=== PATIENT | male | born 1980 | race Caucasian/White ===

== ENCOUNTER 2016-11-05 20:31 | Inpatient (IN) | payer OTHER ==
[~2016-11-05] VITALS: Ht 172.7 cm; Wt 88.1 kg
[~2016-11-05 20:31] MED LIST: BENADRYL50 MG PO; IBUPROFEN200 M1 PO; MELATONIN5 M2 PO; NEXIUM40 MG PO; Xanax PO
[2016-11-05 20:54] LABS: POINT-OF-CARE METER ID UU13113778
[2016-11-05 21:21] LABS: CARBON DIOXIDE (BICARBONATE) 21.4 MEQ/L (20-31); HEMATOCRIT 37.8 % (38.0-50.0); MCH 37.2 PG (29.0-34.0); MCV 100.5 FL (86-99); MEAN PLAT.VOLUME 9.2 uM^3 (9.0-12.4); PLATELET COUNT 118 K/uL (156-360); RBC DIS.WIDTH-CV 11.5 % (11.8-14.6); RBC DIS.WIDTH-SD 41.8 % (39-53); RED BLOOD COUNT 3.76 M/uL (4.00-5.50); WHITE BLOOD COUNT 7.9 K/uL (4.1-10.2)
[2016-11-05 21:48] LABS: ANION GAP 20 MEQ/L (2-14); CHLORIDE 94 MEQ/L (99-109); POTASSIUM 3.7 MEQ/L (3.7-5.4); SAMPLE HEMOLYSIS CHECK 0; SAMPLE ICTERIC CHECK 0; SAMPLE LIPEMIA CHECK 0; SODIUM 133 MEQ/L (136-147); TOTAL BILIRUBIN 1.1 MG/DL (0.0-1.0)
[2016-11-05 21:53] LABS: ALKALINE PHOSPHATASE 116 IU/L (3-129); GFR ESTIMATE (CALCULATED) > 59 mL/min/; GLUCOSE 366 mg/dL (70-99); LIPASE 47 U/L (1.0-51.0); UREA NITROGEN (BUN) 8 mg/dL (9-23)
[2016-11-05 22:54] LABS: ADD MIUA? YES; BILIRUBIN NEGATIVE; BLOOD NEGATIVE; COLOR YELLOW ((YELLOW)); GLUCOSE (STRIP) >=500; KETONES 80; LEUKOCYTES NEGATIVE; NITRITE NEGATIVE; PROTEIN (STRIP) >=500; SPECIFIC GRAVITY 1.029 (1.000-1.030); UROBILINOGEN 0.2 MG/DL (0.2-1.0)
[2016-11-05 22:58] LABS: BACTERIA NONE SEEN /HPF; EPITHELIAL CELLS NONE SEEN /HPF; MUCUS NONE SEEN /LPF; RED BLOOD CELLS 0-5 /HPF (0-5); UCUL ADDED? NO; WHITE BLOOD CELLS 0-5 /HPF (0-5)
[2016-11-05] MEDS ORDERED: XANAX1 MG PO (23:51)
[2016-11-05] MEDS ORDERED: JANUMET 50/11 TABLET PO (23:52)
[2016-11-05] MEDS ORDERED: 5-HTP100 MG PO (23:52)
[2016-11-05] MEDS ORDERED: PRILOSEC OTC20 MG PO (23:52)
[2016-11-05] MEDS ORDERED: ALLEGRA ALLERG180 MG PO (23:53)
[2016-11-05] MEDS ORDERED: EXCEDRIN MIGRA1 EAC3 PO (23:53)
[2016-11-05] MEDS ORDERED: DAILY VALUE1 EACH PO (23:53)
[2016-11-05] MEDS ORDERED: ICY HOT 4%-1%76.5 GM TP (23:55)
[2016-11-06] VITALS (7 sets, daily range): BP systolic 119–153; BP diastolic 67–85
[2016-11-06 02:26] LABS: MAGNESIUM 1.8 mg/dl (1.3-2.7)
[2016-11-06 02:43] LABS: POINT-OF-CARE METER ID UU14162513
[2016-11-06 05:46] LABS: BASOPHIL COUNT 0.1 K/uL (0-0.1); EOSINOPHIL (%) 0.9 % (0-5); EOSINOPHIL COUNT 0.1 K/uL (0-0.3); HEMATOCRIT 35.1 % (38.0-50.0); IMMATURE GRANULOCYTE (%) 0.5 % (0.0-0.7); INSTRUMENT ABS NEUTROPHIL CT 4.7 K/uL; LYMPHOCYTE COUNT 1.2 K/uL (1.0-2.8); MCH 36.8 PG (29.0-34.0); MCHC 35.9 G/DL (30.0-36.0); MCV 102.6 FL (86-99); MEAN PLAT.VOLUME 9.6 uM^3 (9.0-12.4); MONOCYTE (%) 8.5 % (3-12); MONOCYTE COUNT 0.6 K/uL (0-0.8); NEUTROPHIL (%) 70.9 % (45-76); NEUTROPHIL COUNT 4.7 K/uL (1.8-6.4); PLATELET COUNT 118 K/uL (156-360); RBC DIS.WIDTH-CV 11.8 % (11.8-14.6); RBC DIS.WIDTH-SD 44.6 % (39-53); RED BLOOD COUNT 3.42 M/uL (4.00-5.50); WHITE BLOOD COUNT 6.6 K/uL (4.1-10.2)
[2016-11-06 06:17] LABS: ANION GAP 18 MEQ/L (2-14); CHLORIDE 98 MEQ/L (99-109); GFR ESTIMATE (CALCULATED) > 59 mL/min/; GLUCOSE 290 mg/dL (70-99); POTASSIUM 4.1 MEQ/L (3.7-5.4); SAMPLE HEMOLYSIS CHECK 0; SAMPLE ICTERIC CHECK 0; SAMPLE LIPEMIA CHECK 0; SODIUM 137 MEQ/L (136-147); UREA NITROGEN (BUN) 6 mg/dL (9-23)
[2016-11-06 08:17] LABS: POINT-OF-CARE METER ID UU14162513
[2016-11-06 11:10] LABS: POINT-OF-CARE METER ID UU14162513
[2016-11-06 21:10] LABS: POINT-OF-CARE METER ID UU13113725
[2016-11-07 06:25] LABS: HEMATOCRIT 38.7 % (38.0-50.0); MCH 37.6 PG (29.0-34.0); MCHC 35.9 G/DL (30.0-36.0); MCV 104.6 FL (86-99); MEAN PLAT.VOLUME 10.1 uM^3 (9.0-12.4); PLATELET COUNT 107 K/uL (156-360); RBC DIS.WIDTH-CV 11.9 % (11.8-14.6); RBC DIS.WIDTH-SD 45.5 % (39-53); WHITE BLOOD COUNT 5.3 K/uL (4.1-10.2)
[2016-11-07 07:03] LABS: Estimated Average Glucose 260 mg/dL (70-123); HEMOGLOBIN A1c (GLYCOHEMOGLOB) 10.7 % HGB (Below 5.7)
[2016-11-07 07:25] VITALS: BP 143/85
[2016-11-07 07:30] LABS: ANION GAP 13 MEQ/L (2-14); CHLORIDE 98 MEQ/L (99-109); GFR ESTIMATE (CALCULATED) > 59 mL/min/; GLUCOSE 169 mg/dL (70-99); POTASSIUM 3.4 MEQ/L (3.7-5.4); SAMPLE HEMOLYSIS CHECK 0; SAMPLE ICTERIC CHECK 0; SAMPLE LIPEMIA CHECK 0; SODIUM 137 MEQ/L (136-147); UREA NITROGEN (BUN) 7 mg/dL (9-23)
[2016-11-07 07:43] LABS: ALKALINE PHOSPHATASE 85 IU/L (3-129); TOTAL BILIRUBIN 1.7 MG/DL (0.0-1.0)
[2016-11-07] MEDS ORDERED: PANTOPRAZOLE SO40 MG PO (08:27)
[2016-11-07] MEDS ORDERED: CHLORDIAZEPOXID25 MG PO (08:29)
[2016-11-07] MEDS ORDERED: NOVOLOG PE100 UNITS/ SC (08:29)
[2016-11-07] MEDS ORDERED: LANTUS 3 M100 UNITS1 SC (08:32)
[2016-11-07] MEDS ORDERED: PERCOCET 5/31 TABLET PO (08:32)
[2016-11-07 10:45] LABS: HBSG INDEX 0.16; HPCA INDEX 0.14
[2016-11-07 10:46] LABS: ANTI-HEPATITIS A VIRUS (IGM) Nonreactive; HAV INDEX 0.13
[2016-11-07 10:47] LABS: ANTI-HEPATITIS B CORE (IGM) Nonreactive; HBC IgM INDEX 0.14
== END 2016-11-07 10:14 | disposition left against medical advice (07) | DRG 894 ==
LOC: EME 20:31 → EDOF 11-06 00:40 → ENRESERV 11-06 00:43 → 5WEST 11-06 01:47 → ENRESERV 11-06 10:35 → 5EAST 11-06 14:04
PROVIDERS: Emergency Medicine; Hospitalist; Physician Assistant Medical
DX: F10.230 Alcohol dependence with withdrawal, uncomplicated (principal); E11.65 Type 2 diabetes mellitus with hyperglycemia; D69.6 Thrombocytopenia, unspecified; E88.89 Other specified metabolic disorders; E86.0 Dehydration; I10 Essential (primary) hypertension; K21.9 Gastro-esophageal reflux disease without esophagitis; K29.20 Alcoholic gastritis without bleeding; K70.30 Alcoholic cirrhosis of liver without ascites; F41.9 Anxiety disorder, unspecified; E66.9 Obesity, unspecified; Z68.29 Body mass index [BMI] 29.0-29.9, adult; Z91.19 Patient's noncompliance with other medical treatment and regimen; Z79.84 Long term (current) use of oral hypoglycemic drugs
CPT/HCPCS: 74177; 76705; 80048; 80053; 80074; 81003; 82010; 82803; 82948; 83036; 83690; 83735; 85025; 85027; 99281; 99285; C9113; J1170; J1650; J1815; J2060; J2270; J2405; J3411; J7030; J7120; S0028